=== PATIENT | female | born 1980 | race Caucasian/White ===

== ENCOUNTER 2018-08-30 09:03 | Day surgery (SDC) | payer BC ==
[2018-08-30] MEDS ORDERED: ceFAZolin 2 GM/DEXTROSE 100 ML IV ONE (09:16)
[2018-08-30] MEDS ORDERED: GABAPENTIN 300 MG CAP PO ONE (09:16)
[2018-08-30] MEDS ORDERED: ACETAMINOPHEN 500 MG TAB PO ONE (09:16)
[2018-08-30] MEDS ORDERED: LR 1,000 ML IV ONE (09:17)
[2018-08-30] MEDS ORDERED: LIDOCAINE 1% 2 ML INJ ID PRN (09:17)
[2018-08-30] MEDS ORDERED: THROMBIN (BOVINE) 20,000 UNIT VIAL TP ONE (09:21)
[2018-08-30] MEDS ORDERED: BACITRACIN 50,000 UNITS/10 ML SYR IRR ONE (09:21)
[2018-08-30] MEDS ORDERED: SURGIFLO MATRIX KIT WITH THROMBIN 8 ML TP ONE (09:21)
[2018-08-30] MEDS ORDERED: CHLORHEXIDINE GLUC HIBICLENS 118 ML BTL TP ONE (09:21)
--- NOTE | 2018-08-30 09:22 | PDHPUP ---
History & Physical Update H&P update statement: This history and physical update is based on an assessment of the patient which was completed after admission or registration (within 24 hours), but prior to the surgery/procedure. H&P update: no change in patient's condition since H&P completed (Consents signed and site marked. All questions answered.)
[2018-08-30] MEDS ORDERED: REMIFENTANIL HCL 1 MG VIAL ONE (09:41)
[2018-08-30] MEDS ORDERED: fentaNYL 100 MCG/2 ML INJ ONE (09:41)
[2018-08-30] MEDS ORDERED: PROPOFOL/EMULSION 500 MG/50 ML BOTTLE IV ONE (09:42)
[2018-08-30] MEDS ORDERED: MIDAZOLAM 2 MG/2 ML VIAL ONE (09:42)
[2018-08-30] MEDS ORDERED: LIDOCAINE 2% 5 ML SDV ONE (09:43)
[2018-08-30] MEDS ORDERED: ROCURONIUM 50 MG/5 ML VIAL ONE (09:45)
[2018-08-30] MEDS ORDERED: ONDANSETRON 4 MG/2 ML VIAL ONE (09:47)
[2018-08-30] MEDS ORDERED: DEXAMETHASONE 4 MG/ML VIAL ONE (09:47)
[2018-08-30] MEDS ORDERED: MIDAZOLAM 2 MG/2 ML VIAL IVP ONE (09:48)
--- NOTE | 2018-08-30 10:20 | PDANEPAE ---
ANE History of Present Illness ACDF ANE Past Medical History - Cardiovascular History Hx Hypertension: No Hx Arrhythmias: No Hx Chest Pain: No Hx Coronary Artery / Peripheral Vascular Disease: No Hx CHF / Valvular Disease: No Hx Palpitations: No - Pulmonary History Hx COPD: No Hx Asthma/Reactive Airway Disease: No Hx Recent Upper Respiratory Infection: No Hx Oxygen in Use at Home: No Hx Sleep Apnea: No Sleep Apnea Screening Result - Last Documented: Negative - Neurologic History Hx Cerebrovascular Accident: No Hx Seizures: No Hx Dementia: No Neurologic History Comment: Right UE weakness, sharp pain down arm to back of hand - Endocrine History Hx Diabetes: No - Renal History Hx Renal Disorders: No - Liver History Hx Hepatic Disorders: No - Neurological & Psychiatric Hx Hx Neurological and Psychiatric Disorders: No - Cancer History Hx Cancer: No - Congenital Disorder History Hx Congenital Disorders: No - GI History Hx Gastrointestinal Disorders: No - Other Health History Other Health History: wears glasses/contacts. permanent retainer on lower teeth - Chronic Pain History Chronic Pain: Yes (neck, right arm) - Surgical History Prior Surgeries: wisdon teeth removal ANE Review of Systems Review of Systems: - Exercise capacity METS (RN): 4 METS ANE Patient History - Allergies Allergies/Adverse Reactions: No Known Allergies Allergy (Verified 08/25/18 14:20) - Home Medications Home medications: home medication list seen and reviewed Home Medications: Oxycodone HCl/Acetaminophen 08/25/18 [Last Taken Unknown] - NPO status NPO Since - Liquids (Date): 08/30/18 NPO Since - Liquids (Time): 08:00 NPO Since - Solids (Date): 08/29/18 NPO Since - Solids (Time): 20:00 - Anes Hx Anes Hx: no prior problems - Smoking Hx Smoking Status: Former smoker - Family Anes Hx Family Hx Anesthesia Complications: none ANE Labs/Vital Signs - Vital Signs Blood Pressure: 125/71 Heart Rate: 65 Respiratory Rate: 18 O2 Sat (%): 98 Height: 152.4 cm Weight: 78.018 kg ANE Physical Exam - Airway Neck exam: decreased ROM Mallampati Score: Class 1 Mouth exam: normal dental/mouth exam - Pulmonary Pulmonary: no respiratory distress - Cardiovascular Cardiovascular: regular rate and rhythym - ASA Status ASA Status: II ANE Anesthesia Plan Anesthesia Plan: general endotracheal anesthesia Specialized Airway: video laryngoscope Urgent/Emergent Case: Pancho jane completed preop but documented later for safe timely pt care
--- NOTE | 2018-08-30 10:21 | POSTANESTH ---
Post Anesthetic Evaluation Cardiovascular Status: Normal, Stable Respiratory Status: Normal, Stable Level of Consciousness/Mental Status: Can Participate in Eval Pain Control: Adequate, Prn Tx Ordered Nausea/Vomiting Control: Adequate, Prn Tx Ordered Complications Possibly Related to Anesthesia: None Noted
[2018-08-30] MEDS ORDERED: PROMETHAZINE HCL 25 MG/ML INJ IVP PRN (10:37)
[2018-08-30] MEDS ORDERED: HYDROmorphONE/DILAUDID 2 MG/ML INJ IVP PRN (10:37)
[2018-08-30] MEDS ORDERED: NALOXONE HCL 0.4 MG/ML INJ IVP PRN (10:37)
[2018-08-30] MEDS ORDERED: fentaNYL 100 MCG/2 ML INJ IVP PRN (10:37)
[2018-08-30] MEDS ORDERED: ALBUTEROL 3 ML DEYVIAL IH PRN (10:37)
[2018-08-30] MEDS ORDERED: ONDANSETRON 4 MG/2 ML VIAL IVP PRN (10:37)
[2018-08-30] MEDS ORDERED: oxyCODONE IR 5 MG TAB PO PRN (10:37)
[2018-08-30] MEDS ORDERED: DIAZEPAM 5 MG/ML 1 ML SYR IVP PRN (10:37)
[2018-08-30] MEDS ORDERED: HYDROCODONE/APAP 5/325 TAB PO PRN (10:37)
[2018-08-30] MEDS ORDERED: LR 500 ML IV PRN (10:37)
[2018-08-30] MEDS ORDERED: ACETAMINOPHEN 500 MG TAB PO PRN (10:37)
--- NOTE | 2018-08-30 11:32 | POSTOPPROG ---
Post Op Note Date of Operation: 08/30/18 Surgeon: Eduard Bowling Game Advisor: LANCE Rutledge PAC Anesthesia: GET(General Endotracheal) Pre-op Diagnosis: cervical stenosis, right arm weakness Post-op Diagnosis: cervical stenosis, right arm weakness Indication: cervical stenosis, right arm weakness Procedure: ACDF C6-7 Inf/Abcess present in the surg proc area at time of surgery?: No EBL: Minimal PA Addendum - Addendum .: S: Resting comfortably O: NAD A&Ox3 MAEx4 5/5 and equal in BUE and BLE, except right tricep/bicep 5-/5 A/p 37y/o F s/p ACDF C6/7 -Monitor for 4 hours in PACU -Optimize pain management -Advance diet as tolerated -Please notify NS with any change in neuro/motor exam
--- NOTE | 2018-08-30 14:16 | GOP ---
DATE OF OPERATION: 08/30/2018 SURGEON: Eduard Bowling MD APPLIANCE SERVICE REPRESENTATIVE: JOSH Alcaraz ANESTHESIA: General. PREOPERATIVE DIAGNOSIS: 1. C6-C7 herniated nucleus pulposus with right upper extremity radiculopathy and weakness. 2. Treatment refractory to nonoperative intervention. 3. Cervical kyphosis. 4. Treatment refractory to nonoperative intervention. POSTOPERATIVE DIAGNOSIS: 1. C6-C7 herniated nucleus pulposus with right upper extremity radiculopathy and weakness. 2. Treatment refractory to nonoperative intervention. 3. Cervical kyphosis. 4. Treatment refractory to nonoperative intervention. PROCEDURE PERFORMED: 1. Anterior arthrodesis with approach to C6-C7. 2. C6-C7 diskectomy with bilateral foraminotomies, osteophytectomies, and interbody fusion using a 7 mm titanium coated PEEK cage filled with morselized autograft and allograft. 3. Anterior cervical fusion C6-C7 with a 17 mm Medtronic Zevo plate. 4. Use of intraoperative fluoroscopy, less than 1 hour physician time. 5. Use of neuromonitoring. 6. Use of operating microscope. FINDINGS: per imaging SPECIMENS: None. ESTIMATED BLOOD LOSS: 10 mL. INDICATIONS: The patient is Smiley is a very pleasant woman who unfortunately has been suffering from right upper extremity radiculopathy with some weakness. Imaging demonstrated a large right C6-7 disk herniation. After discussing the risks, benefits, and treatment alternatives, after failing nonoperative intervention, we decided to proceed forth with surgery as described above. DESCRIPTION OF PROCEDURE: Patient was brought to the operating theater and underwent general endotracheal anesthesia without complications. She had Venodynes, FABRIZIO hose, and the appropriate lines placed by Anesthesia. She was maintained supine on operating table with her head slight extension. Using lateral fluoroscopy and a spinal needle, we then picked our entry point at the C6, C7 level. This was marked in the transverse incision on the right side of her neck. We had to use an oblique x-ray, secondary to the patient's body habitus in her shoulders. All bony processes were inspected and padded, and a time-out was completed per protocol. The patient received antibiotics within 1 hour of incision. The incision was taken down with the scalpel blade. Using monopolar, the incision was taken down through subcutaneous tissues to the level of the platysma. The platysma was over-mined in the cranial and caudal directions. A Weitlaner was placed to maintain our exposure. We opened the fibers of the platysma cranially and caudally. Using both blunt and sharp dissection, we traveled in a plane medial to the carotid sheath and lateral to the esophagus and trachea to reach the prevertebral fascia. We confirmed our level again using lateral fluoroscopy. We elevated the longus coli muscle from the anterior vertebral bodies of C6 and C7. Deep retractors were placed to maintain our exposure. The microscope was brought into field to assist with microscopic dissection and maintain illumination and magnification. We placed a [place] pin into the vertebral body of C6 and C7 and placed C6-C7 into mild distraction. We completed a C6-C7 diskectomy with bilateral foraminotomies and osteophytectomies. We pull out a large free fragment of disk material from the right foramen with angled nerve hooks. Once I felt that everything was well decompressed on manual palpation, we measured the interbody space and prepared the cartilagenous endplates. We placed a 7 mm titanium coated PEEK cage filled with the morselized autograft and allograft into the C6-C7 disk space. We removed the [place] pins and drilled down the anterior osteophytes and secured a 17 mm Medtronic Zevo plate onto the vertebral bodies of C6 and C7. AP and lateral x-rays demonstrated good placement of the hardware. We obtained hemostasis and the wound irrigated copiously with bacitracin irrigation. We closed the wound in multiple layers with Vicryl sutures for the deep layers and Dermabond for the skin. The patient's wound was dressed sterilely. She was then awakened, extubated, and taken to the recovery room in stable condition. There were no complications and no noted changes on neuromonitoring throughout the procedure. Please note, the utilization of a PA was essential to protection and retraction of critical structures. COMPLICATIONS: None. /[id number]/MODL MTDD
[2018-08-30] MEDS ORDERED: CYCLOBENZAPRINE 10 MG TAB PO SCH (16:00)
[2018-08-30 16:35] VITALS: BP 137/82
== END 2018-08-30 15:40 | disposition home or self-care (01) ==
LOC: FSGY 09:03
PROVIDERS: ATTEND Neurological Surgery
DX: M48.02 Spinal stenosis, cervical region (principal); Z87.891 Personal history of nicotine dependence
CPT/HCPCS: C1713; J0690; J1100; J2250; J2405; J2704; J3010